=== PATIENT | male | born 1990 | race Caucasian/White ===

== ENCOUNTER 2024-12-19 21:02 | Emergency (ER) | payer OTHER, SELFPAY ==
[2024-12-19 21:09] VITALS: BP 146/101
[2024-12-19] MEDS: PEN VK 500 MG PO (22:37)
--- NOTE | 2024-12-19 22:48 | ED.GENMED ---
History of Present Illness
General
Chief Complaint: Dental Problem
Source: patient
Exam Limitations: none
Time Seen by Provider: 12/19/24 21:54
Nursing documentation reviewed up to this point in time: agreed with
History of Present Illness
History of Present Illness:
Patient to ED with complaint of dental pain. Reports broken right lower 1st molar. 2 weeks ago he developed pain at site but pain resolved. Yesterday pain returned. Taking tylenol and ibu with some relief. Denies any fever/chills, facial
swelling. Brought self to ED for eval.
Past History
Past History
ED Past Medical History: None
Review of Systems
Review of Systems
Allergies reviewed?: Yes
All Other Systems: ROS reviewed and negative except as documented in HPI and ROS
Constitutional: Reports no symptoms
EENT: Reports other (pain to right lower 1st molar)
Musculoskeletal: Reports no symptoms
Skin: Reports no symptoms
Neurological: Reports no symptoms
Psychiatric: Reports no symptoms
Phy Exam
General Physical Exam
General Presentation: well appearing and no apparent distress
General age: appears stated age
General Skin: warm and dry
General Habitus: normal
General Mental: alert
ENT Exam
ENT Exam: pharynx normal, neck supple, swallowing well and other (Pain to right lower 1st molar. No evidence of abscess. Broken tooth, tender to touch.)
Musculoskeletal Exam
Musculoskeletal Exam: full ROM and neuro vasc intact
Skin Exam
Skin Exam: normal color, warm/dry and no rash
Psychiatric Exam
Psychiatric Exam: normal mood/affect
Course
Orders/Labs/Results
Orders:
Orders
12/19/24 22:13
Penicillin V Potassium [Pen Vk] 500 mg PO NOW STA
Vital Signs
Initial and Last Documented VS:
Initial Vital Signs
Temp Pulse Resp BP Pulse Ox
98.3 F 84 18 146/101 98
12/19/24 21:09 12/19/24 21:09 12/19/24 21:09 12/19/24 21:09 12/19/24 21:09
Last Documented Vital Signs
Temp Pulse Resp BP Pulse Ox
98.3 F 84 18 146/101 98
12/19/24 21:09 12/19/24 21:09 12/19/24 21:09 12/19/24 21:09 12/19/24 21:09
*Critical Care Note
Total Time (30-74mins, 75-104mins- exclusive of procedures): Not Applicable
Update Note
Update Note:
Patient to ED wtih dental pain. No fver/chills. No facial swelling, no trismus. Broken right lower 1st molar. No abscess noted. WIll place on PenVK and he will folllow up with dentist on Saturday as planned. 1st dose given in ED. He is afebrile,
no difficulty breathing or swallowing.
ED Attending Note
-
Portions of this chart may have been created with voice recognition software.� Occasional wrong word or��sound alike� substitutions may have occurred due to the inherent limitations of voice recognition software.
Discharge Plan
Departure
Patient Disposition: Home (Routine Discharge)
Date of Disposition: 12/19/24
Time of Disposition: 22:15
Patient with high blood pressure during this ER visit?: No
Condition: Good
Covid-19: Not Applicable
Discharge Problem:
Pain, dental
Instructions: Fractured Tooth (DC), Dental Pain (DC)
Prescriptions:
New
penicillin V potassium 500 mg tablet
500 mg PO QID Qty: 28 0RF
Activity Restrictions/Additional Instructions:
Follow up with your dentist on Saturday as planned.
Interventions
Interventions:
*Risk Screen - Suicide Last Done: 12/19/24 21:11
*General Assessment Last Done: 12/19/24 21:11
*Neglect/Abuse Screening Last Done: 12/19/24 21:11
*ED- Fall Risk Assessment Last Done: 12/19/24 22:40
*ED COVID-19 Vaccine History Last Done: 12/19/24 21:11
*Nursing Disposition Last Done: 12/19/24 22:43
Discharge Date and Time
Discharge Date/Time: 12/19/24 22:43
Print Language: [id number]
== END 2024-12-19 22:43 | disposition home or self-care (01) ==
LOC: EMR 21:02
PROVIDERS: EMERGENCY PHYSICIAN Emergency Medicine
DX: K08.89 Other specified disorders of teeth and supporting structures (principal)
CPT/HCPCS: 99282